=== PATIENT | female | born 1945 | race Caucasian/White ===

== ENCOUNTER 2018-11-02 21:13 | Observation (INO) ==
--- NOTE | 2018-11-02 21:28 | Emergency Department Note ---
Disposition Clinical Impression: Unstable angina pectoris Disposition: Admitted As Inpatient Condition: Fair Time of Disposition: 00:30 General Adult HPI - General Stated complaint: Chest Pain Time Seen by Provider: 11/02/18 21:18 - Related Data Home Medications Medication Instructions Recorded Confirmed Atenolol 25 PO DAILY 11/02/18 Estrogens, Conjugated 0.625 PO DAILY 11/02/18 Hydrochlorothiazide 12.5 PO DAILY 11/02/18 Levothyroxine 0.137 PO DAILY 11/02/18 Lyrica 75 PO DAILY 11/02/18 Omeprazole 40 PO DAILY 11/02/18 Naproxen [Naprosyn] 500 mg PO BID 11/03/18 11/03/18 Allergies Allergy/AdvReac Type Severity Reaction Status Date / Time No Known Allergies Allergy Verified 11/02/18 21:25 Course Vital Signs Temperature 97.7 F 11/02/18 21:25 Pulse Rate 51 11/02/18 21:25 Respiratory Rate 20 11/02/18 21:25 Blood Pressure 150/95 11/02/18 21:25 O2 Sat by Pulse Oximetry 99 11/02/18 21:25 Temperature 97.8 F 11/03/18 02:53 Pulse Rate 49 11/03/18 02:53 Respiratory Rate 14 11/03/18 02:53 Blood Pressure 155/73 11/03/18 02:53 O2 Sat by Pulse Oximetry 99 11/03/18 02:53 Oxygen Delivery Oxygen Delivery Room Air Medical Decision Making - Lab Data Result diagrams: 11/02/18 21:43 11/02/18 21:43 Lab Results 11/02/18 11/02/18 Range/Units 21:43 21:43 WBC 7.2 (4.3-11.1) K/mcL RBC 4.47 (3.82-4.97) M/mcL Hgb 13.6 (11.5-15.4) g/dL Hct 41.4 (35.3-44.9) % MCV 92.6 (83.0-100.0) fL MCH 30.4 (28.0-33.3) pg MCHC 32.9 (31.6-35.5) g/dL RDW 14.0 (11.5-14.5) % Plt Count 191 (140-400) K/mcL MPV 10.7 (9.4-12.4) fL Immature Gran % 0.3 (0-4) % Seg Neutrophils % 55.2 % Lymphocytes % 31.9 % Monocytes % 10.6 % Eosinophils % 1.3 % Basophils % 0.7 % Neutrophils # 4.0 (1.6-8.9) K/mcL Lymphocytes # 2.3 (0.6-4.6) K/mcL Monocytes # 0.8 (0.0-1.3) K/mcL Eosinophils # 0.1 (0.0-0.6) K/mcL Basophils # 0.1 (0.0-0.2) K/mcL Sodium 140 (136-145) mEq/L Potassium 3.4 L (3.5-5.1) mEq/L Chloride 103 (98-107) mEq/L Carbon Dioxide 29 (23-29) mEq/L BUN 14 (8-23) mg/dL Creatinine 0.70 (0.60-1.20) mg/dL Est GFR ( Amer) > 60 (> 60) Est GFR (Non-Af Amer) > 60 (> 60) BUN/Creatinine Ratio 20 (6-26) Glucose 109 H (70-105) mg/dL Calculated Osmolality 291 (280-300) Calcium 8.7 (8.6-10.3) mg/dL Magnesium 1.8 (1.6-2.6) mg/dL Troponin I < 0.03 (< 0.04) ng/mL Critical Care Time Critical Care Time: Yes Total Critical Care Time: 40 Attestation: Critical care performed: Time is exclusive of separately billable procedures. Time includes: direct patient care, patient reassessment, coordination of patient care, interpretation of data (laboratory data, radiology data, and respiratory data), review of patient's medical records, medical consultation and documentation of patient care. Procedures included in critical care time: Procedures excluded from critical care time: Attestation Statement - Attestation Attestation: I examined this patient and my medical decision-making was reviewed with the Resident Physician. I agree with the documented findings, disposition and treatment plan as described except to the extent set forth below. Patient presents to the ED with a chief complaint of chest pain. She describes some mild burning and pressure since Monday. Today became heaviness. It was related to the left shoulder, now radiates down across the left lower chest. No cardiac history. She did have a heart catheterization 15 years ago at [facility]. On exam she is pleasant and conversant sitting up in bed in no acute distress. Heart is regular rate and rhythm and lungs are clear. No pedal edema. Plan. Chronic workup. Initial EKG reviewed with the resident. Anteroseptal T-wave inversions and mild depressions. Likely admission. No prior EKG for comparison. Patient's troponin is negative. Her heart score is 5. She will be admitted for further cardiac workup patient is still expressing chest pain at this time. We will attempt to give her pain-free.
--- NOTE | 2018-11-02 21:44 | Emergency Department Note ---
Disposition Clinical Impression: Unstable angina pectoris Disposition: Admitted As Inpatient Condition: Fair Referrals: Jasen Howard MD [Primary Care Provider] - Time of Disposition: 00:34 General Adult HPI - General Stated complaint: Chest Pain Time Seen by Provider: 11/02/18 21:18 Source: patient, family, EMS Mode of arrival: EMS Limitations: no limitations Nursing Notes Reviewed: Yes Vital Signs Reviewed: Yes - History of Present Illness HPI Narrative: Patient 72-year-old female history of hypertension presenting the emergency department for chest pain, and acid reflux. She states that on Monday she started having what she described as indigestion. She described it as a chest squeezing, pressure that also radiated up to her left shoulder. She states the pain would come and go. She doubled her Prilosec dose but it did not help with the pain. She states her indigestion feeling went away yesterday but she still continued of chest pressure, and shortness of breath with some activities like gardening or visiting her mom in the skilled nursing. She states that she took an aspirin 325 at 7:45 PM before coming to the emergency department. She did not take nitroglycerin for this. She denies palpitations, nausea, vomiting, headache, abdominal pain, constipation, diarrhea, urinary changes. Pain Scale: 5 - Related Data Home Medications Medication Instructions Recorded Confirmed Atenolol 25 PO DAILY 11/02/18 Diclofenac Sodium 75 PO BID 11/02/18 Estrogens, Conjugated 0.625 PO DAILY 11/02/18 Hydrochlorothiazide 12.5 PO DAILY 11/02/18 Levothyroxine 0.137 PO DAILY 11/02/18 Lyrica 75 PO DAILY 11/02/18 Omeprazole 40 PO DAILY 11/02/18 Sumatriptan 50 PO PRN 11/02/18 Tramadol HCl 12.5 PO DAILY PRN 11/02/18 Allergies Allergy/AdvReac Type Severity Reaction Status Date / Time No Known Allergies Allergy Verified 11/02/18 21:25 All systems ED: reviewed and negative except as stated. Review of Systems: As Per HPI Constitutional: Denies: fever, chills, weakness Eyes: Reports: vision change (History of macular degeneration) Cardiovascular: Reports: chest pain, dyspnea on exertion. Denies: palpitations, orthopnea, edema, syncope Respiratory: Reports: dyspnea. Denies: cough, wheezes, hemoptysis, stridor Gastrointestinal: Denies: abdominal pain, nausea, vomiting, diarrhea, constipation, hematemesis, melena, hematochezia Genitourinary: Denies: urgency, dysuria, frequency, hematuria Musculoskeletal: Denies: back pain, neck pain Integumentary: Denies: rash, abrasion Neurological: Denies: headache, weakness Psychiatric: Reports: anxiety Past Medical History - Past Medical History Attestation: Yes The following information was validated with the patient. Medical history: Reports: fibromyalgia, GERD, hypertension, migraine, thyroid disease, other Psychiatric history: Reports: anxiety - Social History Smoking Status: Never smoker Smokeless Tobacco Status: No Alcohol use: Reports: none Drug use: Reports: none Physical Exam - General Limitations: no limitations General appearance: alert, in no apparent distress - Head Head exam: atraumatic, normocephalic - Eye Eye exam: Present: normal appearance, PERRL. Absent: scleral icterus, conjunctival injection - ENT ENT exam: normal oropharynx, mucous membranes moist - Chest Chest inspection: Present: normal inspection, symmetric chest wall rise - Respiratory Respiratory exam: Present: normal lung sounds bilaterally. Absent: respiratory distress, wheezes, stridor - Cardiovascular Cardiovascular exam: Present: bradycardia, normal heart sounds - Abdominal Exam Abdominal exam: Present: soft, tenderness. Absent: distention, guarding, rebound, rigidity Abdominal tenderness: Present: epigastrium, diffuse, mild - Neurological Exam Neurological exam: Present: alert Course Course Narrative: 72-year-old female history of hypertension presenting with chest pain. EKG shows T-wave inversions in the anterior leads. - Reevaluation(s) Reevaluation #1: The patient and family in the room. Patient is sitting comfortably. Informed the patient of the laboratory results. In the likely admission. Patient agrees with the cardiac workup. Time: 23:00 Reevaluation #2: Patient is continuing to have chest pain. I offered the patient nitroglycerin SL. Patient agrees to take a nitroglycerin. Time: 23:42 Reevaluation #3: The nurse brought to my attention the patient patient is having increased pain. At bedside the patient is having increased pain I have given fentanyl for this pain as well as started on nitroglycerin drip. Time: 00:33 - Consultations Consultation #1: Spoke with Dr. yRder, the hospitalists who agrees to admit the patient. Time: 23:42 Vital Signs Temperature 97.7 F 11/02/18 21:25 Pulse Rate 51 11/02/18 21:25 Respiratory Rate 20 11/02/18 21:25 Blood Pressure 150/95 11/02/18 21:25 O2 Sat by Pulse Oximetry 99 11/02/18 21:25 Temperature 97.7 F 11/02/18 21:25 Pulse Rate 50 11/03/18 02:30 Respiratory Rate 20 11/03/18 02:30 Blood Pressure 120/57 11/03/18 02:30 O2 Sat by Pulse Oximetry 95 11/03/18 02:30 Oxygen Delivery Oxygen Delivery Room Air Medical Decision Making - MDM Narrative Medical decision making narrative: 72-year-old female history of hypertension. No previous cardiac workup. Presenting with chest pain, heart score is 5. Patient will need further cardiac workup and serial troponins. - Medical Records Medical records reviewed: Yes I reviewed the patient's medical records. - Lab Data Lab results reviewed: Yes I reviewed the patient's lab results. Result diagrams: 11/02/18 21:43 11/02/18 21:43 Lab Results 11/02/18 11/02/18 Range/Units 21:43 21:43 WBC 7.2 (4.3-11.1) K/mcL RBC 4.47 (3.82-4.97) M/mcL Hgb 13.6 (11.5-15.4) g/dL Hct 41.4 (35.3-44.9) % MCV 92.6 (83.0-100.0) fL MCH 30.4 (28.0-33.3) pg MCHC 32.9 (31.6-35.5) g/dL RDW 14.0 (11.5-14.5) % Plt Count 191 (140-400) K/mcL MPV 10.7 (9.4-12.4) fL Immature Gran % 0.3 (0-4) % Seg Neutrophils % 55.2 % Lymphocytes % 31.9 % Monocytes % 10.6 % Eosinophils % 1.3 % Basophils % 0.7 % Neutrophils # 4.0 (1.6-8.9) K/mcL Lymphocytes # 2.3 (0.6-4.6) K/mcL Monocytes # 0.8 (0.0-1.3) K/mcL Eosinophils # 0.1 (0.0-0.6) K/mcL Basophils # 0.1 (0.0-0.2) K/mcL Sodium 140 (136-145) mEq/L Potassium 3.4 L (3.5-5.1) mEq/L Chloride 103 (98-107) mEq/L Carbon Dioxide 29 (23-29) mEq/L BUN 14 (8-23) mg/dL Creatinine 0.70 (0.60-1.20) mg/dL Est GFR ( Amer) > 60 (> 60) Est GFR (Non-Af Amer) > 60 (> 60) BUN/Creatinine Ratio 20 (6-26) Glucose 109 H (70-105) mg/dL Calculated Osmolality 291 (280-300) Calcium 8.7 (8.6-10.3) mg/dL Magnesium 1.8 (1.6-2.6) mg/dL Troponin I < 0.03 (< 0.04) ng/mL - Radiology Data Radiology results reviewed: Yes I reviewed the patient's radiology results. Chest X-Ray 11/02/18 21:22 IMPRESSION: No acute cardiopulmonary abnormality. D/ / Moira Solo MD / Moira Solo MD Interpreting Provider: Moira Solo MD - EKG Data EKG #1 EKG attestation: Yes I reviewed and interpreted this EKG. EKG results narrative: Repeat EKG done at 00 38 reviewed by myself intending shows a sinus rhythm that is bradycardic at a rate of 51, MO interval 198, QRS 110, QTc 420 age normal axis and no acute ST changes or T-wave inversions in the anterior leads. EKG has no acute changes when compared with arrival EKG done at 2124. Overall this is a abnormal EKG. EKG #2 EKG attestation: Yes I reviewed and interpreted this EKG. EKG results narrative: Repeat EKG done at 00 38 reviewed by myself intending shows a sinus rhythm that is bradycardic at a rate of 51, MO interval 198, QRS 110, QTc 420 age normal axis and no acute ST changes or T-wave inversions in the anterior leads. EKG has no acute changes when compared with arrival EKG done at 2124. Overall this is a abnormal EKG.
[2018-11-02 22:18] LABS: Basophils # 0.1 K/mcL (0.0-0.2); Basophils % 0.7 %; Eosinophils # 0.1 K/mcL (0.0-0.6); Eosinophils % 1.3 %; Hematocrit 41.4 % (35.3-44.9); Hemoglobin 13.6 g/dL (11.5-15.4); Immature Granulocytes % 0.3 % (0-4); Lymphocytes # 2.3 K/mcL (0.6-4.6); Lymphocytes % 31.9 %; Mean Corpuscular HGB Conc 32.9 g/dL (31.6-35.5); Mean Corpuscular Hemoglobin 30.4 pg (28.0-33.3); Mean Corpuscular Volume 92.6 fL (83.0-100.0); Mean Platelet Volume 10.7 fL (9.4-12.4); Monocytes # 0.8 K/mcL (0.0-1.3); Monocytes % 10.6 %; Platelet Count 191 K/mcL (140-400); Red Blood Count 4.47 M/mcL (3.82-4.97); Segmented Neutrophils % 55.2 %; White Blood Count 7.2 K/mcL (4.3-11.1)
[2018-11-02 22:39] LABS: BUN/Creatinine Ratio 20 (6-26); Blood Urea Nitrogen 14 mg/dL (8-23); Calcium 8.7 mg/dL (8.6-10.3); Carbon Dioxide 29 mEq/L (23-29); Chloride 103 mEq/L (98-107); Glucose 109 mg/dL (70-105); Osmolality,Calculated 291 (280-300); Potassium 3.4 mEq/L (3.5-5.1); Sodium 140 mEq/L (136-145); eGFR For African Americans > 60 (> 60); eGFR For Non-African Americans > 60 (> 60)
[2018-11-02 22:40] LABS: Troponin I < 0.03 ng/mL (< 0.04)
[2018-11-02] MEDS ORDERED: Nitroglycerin 0.4 MG TAB.SUBL SL ONE (23:39)
[2018-11-02] MEDS: Nitroglycerin 0.4 MG TAB.SUBL SL STA ×2 (23:42→23:54)
[2018-11-03 00:08] LABS: Magnesium 1.8 mg/dL (1.6-2.6)
[2018-11-03] MEDS: Nitroglycerin 0.4 MG TAB.SUBL SL STA (00:09)
[2018-11-03] MEDS ORDERED: GI Cocktail 40 ML EACH PO ONE (00:23)
[2018-11-03] MEDS ORDERED: *HR* FentaNYL (PF) 100 MCG/2 ML VIAL IVP ONE (00:23)
[2018-11-03] MEDS: Nitroglycerin 25 MG/250 ML INFUS..BTL IVC SCH (01:50)
[2018-11-03] MEDS ORDERED: Naloxone 0.4 MG/ML INJ IVP PRN (03:10)
--- NOTE | 2018-11-03 03:44 | Internal Med History&Physical ---
Date of Encounter: 11/03/18 Time of Encounter: 02:00 Internal Medicine - H&P: HPI Chief complaint: Chest Pain Admitted From: Home Plans for Post Hospital Care: Home History of present illness: Ms. Longo is a 72 year old female with past medical history significant for hypertension, thyroid disease, GERD, fibromyalgia, tendonitis, migraine, urinary incontinence, and anxiety who presents for sharp left sided chest pain waxing and waning in intensity since Monday. Pain is rated at 7/10 when at its worst. Pain is associated with shortness of breath and radiates to her left shoulder. Denies any exacerbating or alleviating factors until receiving medications in ER. Does report being under significant stress lately due to her and mothers chronic health conditions. Initially she thought it may have been related to acid reflux symptoms but continued despite home antacids. ER reported repeat EKG as sinus bradycardia with rate of 51 with T wave inversions in the anterior leads with no acute change from initial EKG. Patient is unsure what her heart rate typically runs. ER also completed a chest xray showing no acute cardiopulmonary abnormality. While in ER patient received GI cocktail without improvement, SL nitroglycerin x3 then nitroglycerin drip and fentanyl which she reports has improved her pain. Currently still has some chest pain but denies any headache, numbness, tingling, shortness of breath, abdominal pain, bowel or bladder changes. Reports previous cardiac catheterization, ech ocardiogram, and stress test around 15 years ago which she reports being normal as far as she knows. Follows regularly with PCP, Orthopedics, and Urology. Past Med Surg Social Fam HX - Past Medical History Medical history: fibromyalgia, GERD, hypertension, migraine, thyroid disease, other Additional medical history: tendonitis, urinary incontinence Psychiatric history: anxiety - Past Surgical History Surgical History: appendectomy, hysterectomy - Social History Smoking Status: Never smoker Smokeless Tobacco Status: No Alcohol use: none Drug use: none Internal Medicine - H&P: Meds Atenolol 25 PO DAILY 11/02/18 [History] Estrogens, Conjugated 0.625 PO DAILY 11/02/18 [History] Hydrochlorothiazide 12.5 PO DAILY 11/02/18 [History] Levothyroxine 0.137 PO DAILY 11/02/18 [History] Lyrica 75 PO DAILY 11/02/18 [History] Omeprazole 40 PO DAILY 11/02/18 [History] Naproxen [Naprosyn] 500 mg PO BID 11/03/18 [History] Allergy/AdvReac Type Severity Reaction Status Date / Time No Known Allergies Allergy Verified 11/02/18 21:25 All Systems PM: A 10-system review of systems was performed and is negative for pertinent findings except as documented above in the HPI. - Constitutional Vitals: Temp Pulse Resp BP Pulse Ox 97.8 F 49 14 155/73 99 11/03/18 02:53 11/03/18 02:53 11/03/18 02:53 11/03/18 02:53 11/03/18 02:53 Exam: General: Alert and oriented. Skin:Normal color, no rash, no lesions. HEENT:Pupils equal, round and reactive. Cardiovascular:Normal S1 & S2, no rubs, murmurs or gallops. No JVD. Pulse regular. Chest pain not reproducible on palpation. Lungs:Breath sounds clear, no wheezes, or crackles. Abdomen:Soft, non-tender, no rigidity. Extremities:No deformity, no edema or tenderness, no joint swelling or clubbing. Neurological:Normal cognition and motor skills. Pulses:Carotid and radial pulses normal +2. Rest of the physical exam is non contributory. Internal Med - H&P Results - Labs CBC & Chem 7: 11/02/18 21:43 11/02/18 21:43 Labs: Short CBC 11/02/18 Range/Units 21:43 WBC 7.2 (4.3-11.1) K/mcL Hgb 13.6 (11.5-15.4) g/dL Hct 41.4 (35.3-44.9) % Plt Count 191 (140-400) K/mcL Neutrophils # 4.0 (1.6-8.9) K/mcL BMP 11/02/18 21:43 Sodium 140 Potassium 3.4 L Chloride 103 Carbon Dioxide 29 BUN 14 Creatinine 0.70 Glucose 109 H Calcium 8.7 Cardiac Enzymes 11/02/18 Range/Units 21:43 Troponin I < 0.03 (< 0.04) ng/mL - Impressions ITS Impressions Chest X-Ray 11/02/18 21:22 IMPRESSION: No acute cardiopulmonary abnormality. D/ / AnivalJim Solo MD / Moira stewart MD Interpreting Provider: Moira Solo MD - Assessment and Plan (1) Chest pain Current Visit: Yes Status: Acute Assessment and plan: Pain improving with SL nitro, nitro drip, and fentanyl. EKG reported as sinus bradycardia with T wave inversions. Initial troponin in ER negative, serial troponins ordered. Nitro drip started in ER, will continue same. Cardiology consult ordered, will need called in a.m. Continuous cardiac monitoring. Qualifiers: Chest pain type: unspecified Qualified Code(s): R07.9 - Chest pain, unspecified (2) Bradycardia Current Visit: Yes Status: Acute Assessment and plan: Heart rate 40-60's since presentation. Patient unsure what her heart rate typically runs. Hold Atenolol. Cardiology consult ordered, will need called in a.m. (3) Hypokalemia Current Visit: Yes Status: Acute Assessment and plan: Minimally decreased at 3.4 Replacement ordered. Repeat labs ordered. (4) Hypertension Current Visit: Yes Status: Chronic Assessment and plan: Continue home medications once verified and off nitro drip. Qualifiers: Hypertension type: unspecified Qualified Code(s): I10 - Essential (primary) hypertension (5) GERD (gastroesophageal reflux disease) Current Visit: Yes Status: Chronic Assessment and plan: Continue home medications once verified. Qualifiers: Esophagitis presence: esophagitis presence not specified Qualified Code(s): K21.9 - Gastro-esophageal reflux disease without esophagitis (6) Thyroid disease Current Visit: Yes Status: Chronic Assessment and plan: Continue home medications once verified. - Time Spent With Patient Total time spent is greater than 50% in coordination of care (as documented) at patient's floor/unit and/or counseling patient:
[2018-11-03 05:03] LABS: Basophils % 0.7 %; Eosinophils # 0.1 K/mcL (0.0-0.6); Eosinophils % 1.7 %; Hematocrit 40.4 % (35.3-44.9); Hemoglobin 13.3 g/dL (11.5-15.4); Immature Granulocytes % 0.2 % (0-4); Mean Corpuscular HGB Conc 32.9 g/dL (31.6-35.5); Mean Corpuscular Hemoglobin 30.4 pg (28.0-33.3); Mean Corpuscular Volume 92.2 fL (83.0-100.0); Mean Platelet Volume 11.7 fL (9.4-12.4); Monocytes # 0.6 K/mcL (0.0-1.3); Monocytes % 10.6 %; Neutrophils # 2.8 K/mcL (1.6-8.9); Platelet Count 168 K/mcL (140-400); Red Blood Count 4.38 M/mcL (3.82-4.97); Segmented Neutrophils % 47.8 %; White Blood Count 5.8 K/mcL (4.3-11.1)
[2018-11-03 05:19] LABS: BUN/Creatinine Ratio 22 (6-26); Blood Urea Nitrogen 14 mg/dL (8-23); Calcium 8.6 mg/dL (8.6-10.3); Carbon Dioxide 29 mEq/L (23-29); Chloride 103 mEq/L (98-107); Glucose 96 mg/dL (70-105); Osmolality,Calculated 288 (280-300); Potassium 3.1 mEq/L (3.5-5.1); Sodium 139 mEq/L (136-145); eGFR For African Americans > 60 (> 60); eGFR For Non-African Americans > 60 (> 60)
[2018-11-03] MEDS: *HR* Heparin 5,000 UNIT/ML VIAL SQ SCH ×2 (05:29→18:01)
[2018-11-03 05:40] LABS: Lymphocytes # 2.3 K/mcL (0.6-4.6); Platelet Estimate Normal (Normal)
[2018-11-03] MEDS ORDERED: Dextrose Gel 15 GM/37.5 ML TUBE PO PRN ×2 (08:01)
[2018-11-03] MEDS ORDERED: *HR* Dextrose 50 % in Water (Syg) 50 ML SYRINGE IVP PRN (08:01)
[2018-11-03] MEDS ORDERED: D5% in Water 1,000 ML IVC PRN (08:01)
[2018-11-03] MEDS ORDERED: Potassium Chloride 40 MEQ in D5% in 0.45% NACL 1,000 ML IVC SCH (08:15)
[2018-11-03] MEDS ORDERED: Acetaminophen 325 MG TABLET PO ONE (08:47)
[2018-11-03] MEDS ORDERED: Morphine Sulfate 2 MG/ML SYRINGE IVP ONE (08:55)
--- NOTE | 2018-11-03 10:54 | Cardiology Consult Note ---
Date of Encounter: 11/03/18 Time of Encounter: 09:45 Assessment and Plan (1) Atypical chest pain Current Visit: Yes Status: Acute Per cardiology: -Chest pain is reproduceable with palpation. -Troponins negative x3. -ECG with SB, HR 51, Non-specific T wave abnormalities noted. No previous ECG to review. -TTE pending. -Will add asa, statin, No AV georges blockers with bradycardia. -If no significant abnormalities on TTE, anticipate sign off. (2) Bradycardia Current Visit: Yes Status: Acute Per cardiology: -SB noted on ECG, HR 51. -Was on atenolol at home. -Asymptomatic, denies dizziness, lightheadedness, syncope or near syncope. -Avoid AV georges blockers. Discussion w patient/family: The assessment and plan as outlined above was discussed with the patient who expressed understanding and agreement. All questions were answered. Thank you for involving us in the care of your patient. Please call with any questions. Discussed and reviewed with . History of Present Illness Consult date: 11/03/18 Requesting physician: Terell White Consult reason: chest pain Chief complaint: chest pain History of present illness: Ms. Longo is a 72 year old female with a relevant past medical history of HTN, GERD, fibromyalgia, thyroid disease, who presented to [facility] with complaints of chest pain. Patient reports she has had constant chest pain since Monday. Patient states chest pain is sharp. States pain has waxed and waned in intensity, however has not been relieved. Also reports back and shoulder pain. Patient reports she has been able to do her normal activites. States yesterday morning, she weeded her garden and flower beds, took care of her who is blind, did laundry, and cleaned her house. Pateint states chest pain was present, however did not increase with activity. Reports current chest discomfort. Denies dizziness, lightheadedness. Denies syncope or near syncope. Past Med Surg Social Fam HX - Past Medical History Attestation: Yes The following information was validated with the patient. Source: patient, old records reviewed Medical history: fibromyalgia, GERD, hypertension, migraine, thyroid disease, other Additional medical history: tendonitis, urinary incontinence Psychiatric history: anxiety - Past Surgical History Surgical History: appendectomy, hysterectomy - Social History Smoking Status: Never smoker Smokeless Tobacco Status: No Alcohol use: none Drug use: none - Family History Mother Living Status: Still Living Hx Family Cardiac Disorders: Yes Brother Living Status: Still Living Hx Family Cardiac Disorders: Yes Sister Living Status: Still Living Hx Family Cardiac Disorders: Yes Medications and Allergies Atenolol 25 mg PO DAILY 11/02/18 [History] Estrogens, Conjugated 0.625 mg PO DAILY 11/02/18 [History] Hydrochlorothiazide 12.5 mg PO DAILY 11/02/18 [History] Levothyroxine 0.137 mg PO DAILY 11/02/18 [History] Lyrica 75 mg PO DAILY 11/02/18 [History] Omeprazole 40 mg PO DAILY 11/02/18 [History] Naproxen [Naprosyn] 500 mg PO BID 11/03/18 [History] Allergy/AdvReac Type Severity Reaction Status Date / Time No Known Allergies Allergy Verified 11/02/18 21:25 All Systems Review: The remainder of the systems were reviewed and are negative - Cardiovascular Cardiovascular: as per HPI, chest pain at rest, chest pain with exertion Physical Examination Vital Signs, Last 4 Hours Temp Pulse Resp BP Pulse Ox 11/03/18 07:29 97.8 F 53 16 138/76 98 General: Conversant, No Apparent Distress HEENT: Atraumatic, Normocephaly, Mucus Membranes Moist Neck: No JVD, Normal carotid pulses Cardiac: Reg Rate and Rhythm, Normal S1 and S2, No Murmur Lungs: Normal Breath Sounds, No Wheeze, Rales, Rhonchi Neuro: Alert and responsive, No focal deficits noted Abdomen: Soft, Non-Tender Skin: No rashes noted on visualized skin Musculoskeletal: Other (Chest pain reproduceable with palpation. ) Extremities: No Clubbing, No Cyanosis, No Edema, Normal Pulses Results 11/03/18 04:10 11/03/18 04:10 Lab Results Impressions Chest X-Ray 11/02/18 21:22 IMPRESSION: No acute cardiopulmonary abnormality. D/ / Moira Solo MD / Moira Solo MD Interpreting Provider: Moira Solo MD Active Medications Dextrose/Water (Dextrose 50% (Syg)) 25 ml IVP AD PRN PRN Reason: Hypoglycemia Stop: 05/05/19 08:02 Glucagon (Glucagen) 1 mg IM ONCE PRN PRN Reason: Hypoglycemia Stop: 05/05/19 08:02 Glucose (Gluctose) 15 gm PO ONCE PRN PRN Reason: Hypoglycemia Stop: 05/05/19 08:02 Glucose (Gluctose) 30 gm PO ONCE PRN PRN Reason: Hypoglycemia Stop: 05/05/19 08:02 Heparin Sodium (Porcine) (Heparin) 5,000 unit SQ Q12HCO [facility] Stop: 05/05/19 06:01 Last Admin: 11/03/18 05:29 Dose: 5,000 unit Documented by: Nitroglycerin (Nitroglycerin Premix 25 Mg/250 Ml) 25 mg in 250 mls @ 3 mls/hr IVC .Q24H LATOYA; Protocol Stop: 05/05/19 00:31 Last Admin: 11/03/18 01:50 Dose: 5 mcg/min, 3 mls/hr Documented by: Potassium Chloride 40 meq/ (Dextrose/Sodium Chloride) 1,020 mls @ 75 mls/hr IVC .[id number] [facility] Stop: 11/03/18 21:50 Last Admin: 11/03/18 09:23 Dose: 75 mls/hr Documented by: Dextrose (Dextrose 5%) 1,000 mls @ 100 mls/hr IVC .Q10H PRN PRN Reason: HYPOGLYCEMIA Stop: 05/05/19 08:02 Insulin Human Lispro (Humalog) 0 units SQ Q6HR [facility]; Protocol Stop: 05/05/19 12:01 Naloxone HCl (Narcan) 0.4 mg IVP Q2MPRN PRN PRN Reason: SEE COMMENTS Stop: 05/05/19 03:11 Laboratory Tests 11/02/18 11/03/18 11/03/18 21:43 04:10 04:10 Hgb 13.3 Creatinine Troponin I < 0.03 < 0.03 11/03/18 11/03/18 04:10 09:49 Hgb Creatinine 0.63 Troponin I < 0.03 - Imaging and Cardiology Chest Xray: report reviewed - EKG Interpretation EKG results cardiology: personally reviewed (ECG with SB, HR 51. T wave inversions noted in anterior leads.) Consult Discharge Plan - Plan Referrals: Jasen Howard MD [Primary Care Provider] -
--- NOTE | 2018-11-03 12:23 | Event Note ---
Date of Encounter: 11/03/18 Time of Encounter: 12:21 I have seen and evaluated the patient at bedside. H&P, labs and vitals signs reviewed. Patient reporting chest pain, on a nitro drip. Cardiology consulted. will continue to follow along.
[2018-11-03] MEDS: Aspirin Enteric Coated 81 MG Tablet PO SCH (12:30)
[2018-11-03] MEDS: Insulin LISPRO 300 UNITS/3 ML VIAL SQ SCH ×2 (12:34→18:01)
[2018-11-03] MEDS ORDERED: Perflutren Lipid Microsphere 1.3 ML in 0.9 % Sodium Chloride 8.7 ML IVP ONE (13:01)
[2018-11-03] MEDS ORDERED: Ketorolac 15 MG/ML VIAL IVP ONE (13:20)
[2018-11-03] MEDS ORDERED: Pregabalin 75 MG CAPSULE PO SCH (22:52)
[2018-11-03] MEDS ORDERED: Acetaminophen 325 MG TABLET PO PRN (22:53)
[2018-11-04] MEDS: *HR* Heparin 5,000 UNIT/ML VIAL SQ SCH (06:24)
--- NOTE | 2018-11-04 07:55 | Event Note ---
Date of Encounter: 11/04/18 Time of Encounter: 07:54 - Cardiology Event Note TTE reviewed with LVEF preserved, moderate diastolic dysfunction, mild valvular disease, no wall motion abnormalities. Cardiology will sign off, reconsult if needed.
[2018-11-04] MEDS: Aspirin Enteric Coated 81 MG Tablet PO SCH (08:44)
[2018-11-04] MEDS: Nitroglycerin 25 MG/250 ML INFUS..BTL IVC SCH (08:57)
[2018-11-04 09:18] LABS: Alanine Aminotransferase 14 Units/L (7-52); Albumin 3.2 g/dL (3.5-5.7); Albumin/Globulin Ratio 1.1 (1.1-2.2); Alkaline Phosphatase 108 Units/L (34-104); Aspartate Amino Transferase 15 Units/L (13-39); BUN/Creatinine Ratio 15 (6-26); Bilirubin,Total 0.5 mg/dL (0.3-1.0); Blood Urea Nitrogen 10 mg/dL (8-23); Carbon Dioxide 30 mEq/L (23-29); Chloride 105 mEq/L (98-107); Chol/HDL Ratio 3.5 (0-4.9); Cholesterol 151 mg/dL (< 200); Globulin 2.9 g/dL (2.4-3.5); Glucose 136 mg/dL (70-105); HDL Cholesterol 43 mg/dL (40-59); LDL Cholesterol,Calculated 77 mg/dL (0-99); Osmolality,Calculated 295 (280-300); Potassium 3.9 mEq/L (3.5-5.1); Sodium 142 mEq/L (136-145); Total Protein 6.1 g/dL (6.4-8.9); Triglycerides 156 mg/dL (< 150); eGFR For African Americans > 60 (> 60); eGFR For Non-African Americans > 60 (> 60)
[2018-11-04 11:23] VITALS: BP 138/68
--- NOTE | 2018-11-04 11:51 | Electrocardiograph Report ---
[place] [id number] Test Date: 2018-11-02 Pat Name: Ethel Longo Department: EXAM19 Room: 2NE27 Gender: F [employer] Executive: : 1945 Requested By: Natacha Michael Order Number: [id number] Reading MD: Julee Dowell Measurements Intervals [place] Rate: 51 P: 53 MD: 197 QRS: 52 QRSD: 110 T: 50 QT: 486 QTc: 448 Interpretive Statements Sinus rhythm Borderline T abnormalities, anterior leads Electronically Signed On 11-04-2018 11:49:58 EDT by Julee Dowell
--- NOTE | 2018-11-04 11:59 | Discharge Summary ---
Date of Encounter: 11/04/18 Time of Encounter: 11:56 - Discharge Diagnosis (1) Chest pain Priority: Primary Status: Resolved Qualifiers: Chest pain type: unspecified Qualified Code(s): R07.9 - Chest pain, unspecified (2) Hypokalemia Priority: Secondary Status: Resolved (3) Bradycardia Priority: Secondary Status: Chronic (4) Hypertension Priority: Secondary Status: Chronic Qualifiers: Hypertension type: unspecified Qualified Code(s): I10 - Essential (primary) hypertension (5) GERD (gastroesophageal reflux disease) Priority: Secondary Status: Chronic Qualifiers: Esophagitis presence: esophagitis presence not specified Qualified Code(s): K21.9 - Gastro-esophageal reflux disease without esophagitis (6) Thyroid disease Priority: Secondary Status: Chronic Hospital course: Ms. Longo is a 72 year old female past medical history significant for hypertension, thyroid disease, GERD, fibromyalgia, tendonitis, migraine, urinary incontinence, and anxiety who presents for sharp left sided chest pain waxing and waning in intensity since Monday. Patient admitted to the hospital due to chest pain r/o ACS. Serial trops: negative, TTE: unremarkable. Chest pain reproducible with palpation, patient reported working on her yard prior to the beginning of the chest pain. Cardiology was consulted and recommended no intervention. Patient recommended to increase her dose of omeprasole to 40mg/PO daily or to change to lansoprazole 30mg/PO daily. Hemodynamically to be discharged home. Recommended to f/u with her PCP within a week of hospital discharge to coordinate possible outpatient GI evaluation. - Time Spent with Patient Total time spent providing and/or coordinating discharge services: Time spent: Greater than 30 minutes (35) - Discharge Medications Prescriptions: Continued Omeprazole 40 mg PO DAILY Lyrica 75 mg PO DAILY Levothyroxine 0.137 mg PO DAILY Hydrochlorothiazide 12.5 mg PO DAILY Estrogens, Conjugated 0.625 mg PO DAILY Atenolol 25 mg PO DAILY Naproxen [Naprosyn] 500 mg PO BID Home Medications: Atenolol 25 mg PO DAILY 11/02/18 [History] Estrogens, Conjugated 0.625 mg PO DAILY 11/02/18 [History] Hydrochlorothiazide 12.5 mg PO DAILY 11/02/18 [History] Levothyroxine 0.137 mg PO DAILY 11/02/18 [History] Lyrica 75 mg PO DAILY 11/02/18 [History] Omeprazole 40 mg PO DAILY 11/02/18 [History] Naproxen [Naprosyn] 500 mg PO BID 11/03/18 [History] Allergies/Adverse Reactions: Allergy/AdvReac Type Severity Reaction Status Date / Time No Known Allergies Allergy Verified 11/02/18 21:25 Date of admission: 11/03/18 01:24 Primary care physician: Jasen Howard MD Consults: 11/03/18 03:14 Consult to Cardiology [CONS] Routine Comment: Consulting Provider: Cardiology Breonna Reason for Consult: Sharp left sided chest pain waxing and waning in intensity since Monday. Slightly improved with nitro drip and fentanyl. EKG with T wave inversions. Heart rate has been in 40-60's since presentation, unsure what it typically runs. Previous cardiac catheterization around 15 years ago which she reports as being normal. Call Completed: No - Constitutional Vitals: Temp Pulse Resp BP Pulse Ox 98.6 F 60 16 138/68 95 11/04/18 11:17 11/04/18 11:17 11/04/18 11:17 11/04/18 11:17 11/04/18 11:17 Exam: Vitals: Reviewed General: Alert and oriented x4. In no distress, chest pain free Cardiovascular: RRR, normal S1 & S2, no rubs, murmurs or gallops. No JVD. Pulse regular. Chest pain reproducible on palpation. Lungs: CTA b/l, no wheezes, or crackles. Abdomen: Soft, non-tender, no rigidity. Extremities: No deformity, no edema or tenderness, no joint swelling or clubbing. Neurological:Normal cognition and motor skills. Rest of the physical exam is non contributory. - Patient Status Disposition: Home, Self-Care Condition: Good Functional capacity at discharge: independent ambulation Overall status at discharge: patient is back to baseline - Discharge Instructions Follow Up With: Jasen Howard MD [Primary Care Provider] - Forms: ED Satisfaction Letter - Diet and Activity Activity: resume usual activities as tolerated Diet: low salt diet
--- NOTE | 2018-11-05 14:20 | Electrocardiograph Report ---
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
== END 2018-11-04 13:25 | disposition home or self-care (01) ==
LOC: EMEROOARM 21:13 → 2NENU 21:13
PROVIDERS: ADMIT Pediatrics; ATTEND Pediatrics